=== PATIENT | female | born 1985 | race Caucasian/White ===

== ENCOUNTER 2021-12-04 12:23 | Emergency (ER) | payer MEDICAID ==
[~2021-12-04] VITALS: Ht 162.6 cm; Wt 63.5 kg
[2021-12-04 12:35] VITALS: BP 97/69
--- NOTE | 2021-12-04 12:58 | NUR ---
BIB SELF C/O LEFT BUTTOCK ABSCESS X 3 DAYS.DENIES N/V/D; SKIN IS PINK/WARM/DRY; AAOX4 WITH EVEN AND STEADY GAIT; LUNGS CLEAR BL; HR EVEN AND REGULAR; PT DENIES ANY FEVER, CP, SOB, OR COUGH AT THIS TIME; PATIENT STATES PAIN OF 10/10 AT THIS TIME.
--- NOTE | 2021-12-04 13:04 | NUR ---
PT AMBULATED TO BED 03.
--- NOTE | 2021-12-04 13:46 | NUR ---
WILFRIDO ZAVALA WITH PT FOR FURTHER EVALUATION.
[2021-12-04] MEDS ORDERED: MORPHINE SULFATE 4 MG/ML SYR IM ONE (13:55)
[2021-12-04] MEDS ORDERED: LIDOCAINE MPF 1% 5 ML ONE (14:15)
[2021-12-04] MEDS ORDERED: LIDOCAINE MPF 1% 10 MG/ML VIAL INJ ONE (14:15)
[2021-12-04] MEDS ORDERED: NAPR-54 PO (14:27)
[2021-12-04] MEDS ORDERED: CEPH500C16 PO (14:27)
[2021-12-04] MEDS ORDERED: SULF-59 PO (14:27)
--- NOTE | 2021-12-04 14:33 | NUR ---
PT'S WOUND CLEANED WITH NORMAL SALINE AND DRESSED WITH NON-ADHERENT GAUZE/ TAPE. FEMALE RN SOL PRESENT WHILE APPLYING DRESSING
[2021-12-04 14:38] VITALS: BP 107/72
--- NOTE | 2021-12-04 14:40 | NUR ---
Patient discharged with v/s stable. Written and verbal after care instructions given FOR SKIN ABSCESS and explained. Patient alert, oriented and verbalized understanding of instructions. Ambulatory with steady gait. All questions addressed prior to discharge. ID band removed. Patient advised to follow up with PMD. Rx of BACTRIM, KEFLEX, AND NAPROXEN given. Patient educated on indication of medication including possible reaction and side effects. Opportunity to ask questions provided and answered.
== END 2021-12-04 14:40 | disposition home or self-care (01) ==
LOC: MED 12:23
DX: L02.31 Cutaneous abscess of buttock (principal)
CPT/HCPCS: 10060; 96372; 99283; J2001; J2270